=== PATIENT | female | born 1970 | race Caucasian/White ===

== ENCOUNTER 2021-08-13 13:16 | Inpatient (IN) | payer BC ==
[2021-08-13] MEDS ORDERED: Ondansetron 4 MG/2 ML SDV IVPUSH ONE ×2 (14:17→17:08)
[2021-08-13] MEDS ORDERED: Sodium Chloride 0.9% 1,000 ML IV SCH ×2 (14:30→16:00)
[2021-08-13] MEDS ORDERED: Morphine 2 MG/ML SYRINGE IVPUSH ONE (14:37)
[2021-08-13 14:38] LABS: ESTIMATED GFR 90 mL/min (>60)
[2021-08-13] MEDS ORDERED: HYDROmorphone 1 MG/ML Syringe IVPUSH ONE (15:02)
[2021-08-13 15:09] LABS: CORONAVIRUS COVID-19 NAA NEGATIVE (NEGATIVE)
[2021-08-13] MEDS ORDERED: Sodium Chloride 0.9% 10 ML Syringe FLUSH ONE (15:11)
[2021-08-13] MEDS ORDERED: Iopamidol 612 MG/ML 100 ML Bottle IV SCH (15:15)
[2021-08-13] MEDS ORDERED: Sodium Chloride 0.9% 50 ML IV SCH (15:15)
[2021-08-13] MEDS ORDERED: Meropenem 1 GM in Sodium Chloride 0.9% 100 ML IV SCH ×2 (16:45→17:47)
[2021-08-13] MEDS ORDERED: oxyCODONE 5 MG Tab PO PRN (17:47)
[2021-08-13] MEDS ORDERED: Sodium Chloride 0.9% 10 ML Syringe FLUSH PRN (17:47)
[2021-08-13] MEDS ORDERED: Acetaminophen 325 MG Tab PO PRN (17:47)
[2021-08-13] MEDS ORDERED: HYDROmorphone 0.5 MG/0.5 ML Syringe IVPUSH PRN (17:47)
[2021-08-13] MEDS ORDERED: Ondansetron 4 MG/2 ML SDV IV PRN (17:47)
[2021-08-13] MEDS: Enoxaparin 40 MG/0.4 ML Syringe SUBCUT SCH (18:14)
[2021-08-13] MEDS: Meropenem 500 MG in Sodium Chloride 0.9% 50 ML IV SCH (22:34)
[2021-08-14] MEDS: Sodium Chloride 0.9% 1,000 ML IV SCH ×2 (00:45→09:14)
[2021-08-14] MEDS: Meropenem 500 MG in Sodium Chloride 0.9% 50 ML IV SCH ×4 (05:15→22:42)
[2021-08-14] MEDS ORDERED: Levothyroxine 88 MCG Tab PO SCH (09:00)
[2021-08-14] MEDS: atorvaSTATin 20 MG Tab PO SCH (09:50)
[2021-08-14] MEDS: Enoxaparin 40 MG/0.4 ML Syringe SUBCUT SCH (09:50)
[2021-08-15] MEDS: Meropenem 500 MG in Sodium Chloride 0.9% 50 ML IV SCH ×2 (04:53→10:22)
[2021-08-15] MEDS ORDERED: Levothyroxine 88 MCG Tab PO SCH (07:30)
[2021-08-15] MEDS: atorvaSTATin 20 MG Tab PO SCH (10:22)
[2021-08-15] MEDS: Enoxaparin 40 MG/0.4 ML Syringe SUBCUT SCH (11:56)
== END 2021-08-15 11:57 | disposition home or self-care (01) | DRG 244 ==
LOC: JP.ED 13:16 → JP.MS 17:08
PROVIDERS: ADMIT Hospitalist; ATTEND Internal Medicine
DX: K57.32 Diverticulitis of large intestine without perforation or abscess without bleeding (principal); E78.00 Pure hypercholesterolemia, unspecified; E03.9 Hypothyroidism, unspecified; Z20.822 Contact with and (suspected) exposure to COVID-19; Z86.19 Personal history of other infectious and parasitic diseases; Z90.49 Acquired absence of other specified parts of digestive tract; Z79.890 Hormone replacement therapy; Z79.899 Other long term (current) drug therapy; Z88.1 Allergy status to other antibiotic agents; Z88.0 Allergy status to penicillin
CPT/HCPCS: 0241U; 36415; 74177; 80048; 80053; 81001; 82150; 83690; 83735; 85025; 87040; 96361; 96365; 96375; 96376; 99221; 99231; 99238; 99284; 99284-25; A9270-GY; J1170; J1650; J2185; J2270; J2405; J3490; J7030; Q9967

== ENCOUNTER 2022-08-17 09:43 | Emergency (ER) | payer BC ==
[2022-08-17] MEDS ORDERED: Sodium Chloride 0.9% 10 ML Syringe FLUSH PRN ×2 (10:14→10:26)
[2022-08-17] MEDS ORDERED: Sodium Chloride 0.9% 1,000 ML IV STA (10:14)
[2022-08-17] MEDS ORDERED: fentaNYL 100 MCG/2 ML SDV IVPUSH ONE (10:15)
[2022-08-17 10:24] LABS: BASOPHILS PERCENT AUTO 0.1 % (0.1-1.3); EOSINOPHILS ABSOLUTE AUTO 0.21 K/uL (0.00-0.40); EOSINOPHILS PERCENT AUTO 3.1 % (0.0-5.4); HEMATOCRIT 43.4 % (34.3-46.0); HEMOGLOBIN 14.3 g/dL (11.2-15.5); IMMATURE GRAN PERCENT AUTO 0.1 % (0.0-0.7); LYMPHOCYTES ABSOLUTE AUTO 1.53 K/uL (0.8-3.3); LYMPHOCYTES PERCENT AUTO 22.6 % (11.4-47.7); MEAN CORPUSCULAR HEMOGLOBIN 29.4 pg (31.6-35.5); MEAN CORPUSCULAR HGB CONC 32.9 g/dL (31.6-35.5); MEAN CORPUSCULAR VOLUME 89.1 fL (81.4-99.0); MONOCYTES ABSOLUTE AUTO 0.51 K/uL (0.20-0.90); MONOCYTES PERCENT AUTO 7.5 % (3.3-12.6); NEUTROPHILS PERCENT AUTO 66.6 % (40.0-78.1); PLATELET COUNT,PLT 298 K/uL (130-375); RED BLOOD CELL COUNT 4.87 M/uL (3.77-5.24); WHITE BLOOD CELL COUNT,WBC 6.8 K/uL (3.2-11.0)
[2022-08-17] MEDS ORDERED: Iopamidol 612 MG/ML 100 ML Bottle IV PRN (10:26)
[2022-08-17] MEDS ORDERED: Sodium Chloride 0.9% 50 ML IV SCH (10:30)
[2022-08-17 10:39] LABS: BASOPHILS ABSOLUTE AUTO 0.01 K/uL (0.00-0.10); IMMATURE GRAN ABSOLUTE AUTO 0.01 K/uL (0.00-0.23)
[2022-08-17 10:46] LABS: ALANINE AMINOTRANSFERASE,ALT 42 U/L (12-78); ALKALINE PHOSPHATASE 153 U/L (46-116); ASPARTATE AMNIOTRANSFERASE,AST 31 U/L (15-37); BILIRUBIN TOTAL 0.6 mg/dL (0.2-1.0); BLOOD UREA NITROGEN,BUN 10 mg/dL (7-18); CALCIUM 9.8 mg/dL (8.5-10.1); CARBON DIOXIDE,CO2 26 mmol/L (21-32); CHLORIDE,CL 102 mmol/L (100-108); CREATININE 1.1 mg/dL (0.6-1.0); EST CRCL DRUG DOSING (CG) 46.17 mL/min; ESTIMATED GFR 61 mL/min (>60); GLUCOSE RANDOM 90 mg/dL (74-106); PROTEIN TOTAL,TP 8.2 g/dL (6.4-8.2); SODIUM,NA 138 mmol/L (140-148)
[2022-08-17 10:46] LABS: APPEARANCE,URINE CLEAR (CLEAR); BILIRUBIN,URINE NEGATIVE (NEGATIVE); COLOR,URINE YELLOW (YELLOW); GLUCOSE,URINE NEGATIVE (NEGATIVE); KETONES,URINE NEGATIVE (NEGATIVE); LEUKOCYTE ESTERASE,URINE NEGATIVE (NEGATIVE); NITRITE,URINE NEGATIVE (NEGATIVE); OCCULT BLOOD,URINE NEGATIVE (NEGATIVE); PH,URINE 5.5 (5.0-8.0); PROTEIN,URINE NEGATIVE (NEGATIVE); UROBILINOGEN,URINE 0.2 EU/dL (0.2-1.0)
[2022-08-17 10:51] LABS: AMORPHOUS SEDIMENT,URINE NOT SEEN; BACTERIA,URINE RARE; EPITHELIAL CELLS,URINE RARE; MUCUS,URINE NOT SEEN; RBC,URINE NOT SEEN (0-5); WBC,URINE NOT SEEN (0-5)
== END 2022-08-17 14:08 | disposition home or self-care (01) ==
LOC: JP.ED 09:43
DX: N26.1 Atrophy of kidney (terminal) (principal); E78.00 Pure hypercholesterolemia, unspecified; E03.9 Hypothyroidism, unspecified; Z86.16 Personal history of COVID-19; Z88.1 Allergy status to other antibiotic agents; Z88.0 Allergy status to penicillin; Z79.899 Other long term (current) drug therapy; Z98.890 Other specified postprocedural states
CPT/HCPCS: 36415; 74177; 80053; 81001; 83605; 83690; 85025; 96374; 99284; J3010; J3490; J7030; Q9967

== ENCOUNTER 2022-09-04 03:59 | Inpatient (IN) | payer BC ==
[2022-09-04] MEDS ORDERED: Scopolamine 1.5 MG Transdermal Patch TOP ONE (06:27)
[2022-09-04] MEDS ORDERED: Dextrose 5%-Lactated Ringers 1,000 ML IV SCH (06:30)
[2022-09-04] MEDS ORDERED: Bupivacaine 0.5% 50 ML MDV ONE (06:33)
[2022-09-04] MEDS ORDERED: Lidocaine 1% with EPINEPHrine 1:100,000 50 ML MDV ONE (06:33)
[2022-09-04] MEDS ORDERED: Meropenem 500 MG SDV ONE (06:34)
[2022-09-04 06:46] LABS: HEMATOCRIT 39.9 % (34.3-46.0); HEMOGLOBIN 13.5 g/dL (11.2-15.5); MEAN CORPUSCULAR HEMOGLOBIN 30.1 pg (31.6-35.5); MEAN CORPUSCULAR HGB CONC 33.8 g/dL (31.6-35.5); MEAN CORPUSCULAR VOLUME 88.9 fL (81.4-99.0); RED BLOOD CELL COUNT 4.49 M/uL (3.77-5.24); WHITE BLOOD CELL COUNT,WBC 7.6 K/uL (3.2-11.0)
[2022-09-04] MEDS ORDERED: cefOXitin 2 GM in Sodium Chloride 0.9% 100 ML IV ONE (07:00)
[2022-09-04 07:06] LABS: ALANINE AMINOTRANSFERASE,ALT 35 U/L (12-78); ALBUMIN 3.7 g/dL (3.4-5.0); ALKALINE PHOSPHATASE 134 U/L (46-116); ANION GAP 10.5 mmol/L (5.0-14.0); ASPARTATE AMNIOTRANSFERASE,AST 20 U/L (15-37); BILIRUBIN TOTAL 0.2 mg/dL (0.2-1.0); BLOOD UREA NITROGEN,BUN 15 mg/dL (7-18); CALCIUM 9.1 mg/dL (8.5-10.1); CARBON DIOXIDE,CO2 24 mmol/L (21-32); CHLORIDE,CL 106 mmol/L (100-108); EST CRCL DRUG DOSING (CG) 53.23 mL/min; ESTIMATED GFR 69 mL/min (>60); GLUCOSE RANDOM 107 mg/dL (74-106); MAGNESIUM 1.7 mg/dL (1.8-2.4); PHOSPHORUS 3.7 mg/dL (2.5-4.9); POTASSIUM,K 3.8 mmol/L (3.6-5.2); PROTEIN TOTAL,TP 7.3 g/dL (6.4-8.2); SODIUM,NA 140 mmol/L (140-148)
[2022-09-04] MEDS ORDERED: fentaNYL 250 MCG/5 ML SDV ONE ×2 (07:10→07:59)
[2022-09-04] MEDS ORDERED: Ondansetron 4 MG/2 ML SDV ONE (07:11)
[2022-09-04] MEDS ORDERED: Propofol 200 MG/20 ML SDV ONE (07:11)
[2022-09-04] MEDS ORDERED: Rocuronium 50 MG/5 ML Vial ONE ×2 (07:11→09:45)
[2022-09-04] MEDS ORDERED: Neostigmine Methylsulfate 1 MG/ML 5 ML Syringe ONE (07:11)
[2022-09-04] MEDS ORDERED: Glycopyrrolate 0.2 MG/ML 5 ML MDV ONE (07:11)
[2022-09-04] MEDS ORDERED: Dexamethasone 4 MG/ML SDV ONE (07:11)
[2022-09-04] MEDS ORDERED: Succinylcholine 200 MG/10 ML MDV ONE (07:11)
[2022-09-04] MEDS ORDERED: cefOXitin 2 GM in Sodium Chloride 0.9% 50 ML IV ONE (07:15)
[2022-09-04] MEDS ORDERED: diphenhydrAMINE 25 MG Cap PO PRN (07:21)
[2022-09-04] MEDS ORDERED: Ondansetron 4 MG/2 ML SDV IVPUSH PRN (07:21)
[2022-09-04] MEDS ORDERED: Naloxone 0.4 MG/ML SDV IVPUSH PRN (07:21)
[2022-09-04] MEDS ORDERED: diphenhydrAMINE 50 MG/ML SDV IVPUSH PRN (07:21)
[2022-09-04] MEDS ORDERED: ePHEDrine 50 MG/ML SDV ONE (07:53)
[2022-09-04] MEDS ORDERED: Ketamine 15 MG in Sodium Chloride 0.9% 19.85 ML IV SCH (08:00)
[2022-09-04] MEDS ORDERED: Ketamine 500 MG/5 ML MDV IV SCH (08:00)
[2022-09-04] MEDS ORDERED: Linezolid 600 MG/300 ML Premix Bag IRR ONE (08:09)
[2022-09-04] MEDS ORDERED: Labetalol 20 MG/4 ML Syringe ONE (08:59)
[2022-09-04] MEDS ORDERED: CHECK SCOPALAMINE PATCH TOP SCH (09:00)
[2022-09-04] MEDS ORDERED: Lactated Ringers 1,000 ML ONE (09:26)
[2022-09-04] MEDS: HYDROmorphone/Normal Saline 6 MG/30 ML PCA Vial IV PRN ×2 (10:00→17:25)
[2022-09-04] MEDS ORDERED: fentaNYL 100 MCG/2 ML SDV ONE (10:22)
[2022-09-04] MEDS ORDERED: Cyclobenzaprine 10 MG Tab PO PRN (13:18)
[2022-09-04] MEDS ORDERED: hydrOXYzine HCL 100 MG/2 ML SDV IM PRN (13:30)
[2022-09-04] MEDS ORDERED: Acetaminophen 500 MG Tab PO PRN (13:30)
[2022-09-04] MEDS ORDERED: Labetalol 20 MG/4 ML Syringe IVPUSH PRN (13:30)
[2022-09-04] MEDS: cefOXitin 2 GM in Sodium Chloride 0.9% 50 ML IV SCH ×2 (15:00→19:41)
[2022-09-04] MEDS: Pantoprazole 40 MG Vial IVPUSH SCH (15:01)
[2022-09-04] MEDS: MVI, Adult with Vitamin K 10 ML, Thiamine 200 MG, Zinc/Copper/Manganese/Selenium 1 ML i... IV SCH ×4 (15:43)
[2022-09-04] MEDS: Ondansetron 4 MG/2 ML SDV IVPUSH PRN ×2 (19:00→23:29)
[2022-09-04] MEDS: Acetaminophen 500 MG Tab PO SCH (21:39)
[2022-09-04] MEDS: Dextrose 5%-Lactated Ringers 1,000 ML IV SCH (22:18)
[2022-09-05] MEDS: cefOXitin 2 GM in Sodium Chloride 0.9% 50 ML IV SCH ×4 (01:40→19:42)
[2022-09-05 04:32] LABS: BASOPHILS PERCENT AUTO 0.1 % (0.1-1.3); HEMATOCRIT 37.3 % (34.3-46.0); IMMATURE GRAN ABSOLUTE AUTO 0.09 K/uL (0.00-0.23); IMMATURE GRAN PERCENT AUTO 0.4 % (0.0-0.7); LYMPHOCYTES ABSOLUTE AUTO 0.93 K/uL (0.8-3.3); MEAN CORPUSCULAR HEMOGLOBIN 29.6 pg (31.6-35.5); MEAN CORPUSCULAR HGB CONC 32.2 g/dL (31.6-35.5); MEAN CORPUSCULAR VOLUME 92.1 fL (81.4-99.0); MONOCYTES ABSOLUTE AUTO 2.04 K/uL (0.20-0.90); MONOCYTES PERCENT AUTO 8.8 % (3.3-12.6); NEUTROPHILS ABSOLUTE AUTO 20.01 K/uL (1.0-7.6); NEUTROPHILS PERCENT AUTO 86.7 % (40.0-78.1); PLATELET COUNT,PLT 303 K/uL (130-375); RED BLOOD CELL COUNT 4.05 M/uL (3.77-5.24); WHITE BLOOD CELL COUNT,WBC 23.1 K/uL (3.2-11.0)
[2022-09-05] MEDS: Dextrose 5%-Lactated Ringers 1,000 ML IV SCH (04:34)
[2022-09-05] MEDS: HYDROmorphone/Normal Saline 6 MG/30 ML PCA Vial IV PRN (04:37)
[2022-09-05 04:56] LABS: A/G RATIO 0.9 (1.2-2.2); ALANINE AMINOTRANSFERASE,ALT 40 U/L (12-78); ALBUMIN 2.9 g/dL (3.4-5.0); ALKALINE PHOSPHATASE 99 U/L (46-116); ASPARTATE AMNIOTRANSFERASE,AST 24 U/L (15-37); BILIRUBIN TOTAL 0.2 mg/dL (0.2-1.0); BLOOD UREA NITROGEN,BUN 14 mg/dL (7-18); CARBON DIOXIDE,CO2 26 mmol/L (21-32); CHLORIDE,CL 107 mmol/L (100-108); CREATININE 1.2 mg/dL (0.6-1.0); EST CRCL DRUG DOSING (CG) 44.36 mL/min; ESTIMATED GFR 55 mL/min (>60); GLUCOSE RANDOM 210 mg/dL (74-106); MAGNESIUM 1.6 mg/dL (1.8-2.4); PHOSPHORUS 3.3 mg/dL (2.5-4.9); POTASSIUM,K 4.7 mmol/L (3.6-5.2); PRO B-TYPE NATRIUR PEPT,BNPPRO 44 pg/mL (5-125); PROTEIN TOTAL,TP 6.3 g/dL (6.4-8.2); SODIUM,NA 139 mmol/L (140-148)
[2022-09-05 05:04] LABS: ANION GAP 10.7 mmol/L (5.0-14.0); BASOPHILS ABSOLUTE AUTO 0.02 K/uL (0.00-0.10)
[2022-09-05] MEDS: Acetaminophen 500 MG Tab PO SCH (06:05)
[2022-09-05] MEDS: diphenhydrAMINE 50 MG/ML SDV IVPUSH PRN ×2 (07:59→16:31)
[2022-09-05] MEDS: TRULANCE 3 MG PO SCH (09:07)
[2022-09-05] MEDS: Levothyroxine 88 MCG Tab PO SCH (09:07)
[2022-09-05] MEDS: Acetaminophen 1,000 MG in Premix Bag 1 BAG IV SCH ×3 (09:07→21:12)
[2022-09-05] MEDS: SCOPOLAMINE PATCH CHECK TOP SCH (09:12)
[2022-09-05] MEDS: Magnesium Sulfate/Water 2 GM in Premix Bag 1 BAG IV SCH ×3 (09:31→22:21)
[2022-09-05] MEDS: Pantoprazole 40 MG Vial IVPUSH SCH (13:54)
[2022-09-05] MEDS: MVI, Adult with Vitamin K 10 ML, Thiamine 200 MG, Zinc/Copper/Manganese/Selenium 1 ML i... IV SCH ×4 (16:23)
[2022-09-05] MEDS: Ondansetron 4 MG/2 ML SDV IVPUSH PRN (19:30)
[2022-09-06] MEDS: Metoclopramide 10 MG/2 ML SDV IVPUSH PRN ×2 (00:36→07:15)
[2022-09-06] MEDS: Dextrose 5%-Lactated Ringers 1,000 ML IV SCH ×3 (01:05→18:12)
[2022-09-06] MEDS: cefOXitin 2 GM in Sodium Chloride 0.9% 50 ML IV SCH ×2 (01:06→07:21)
[2022-09-06] MEDS: Acetaminophen 1,000 MG in Premix Bag 1 BAG IV SCH (03:21)
[2022-09-06] MEDS: Ondansetron 4 MG/2 ML SDV IVPUSH PRN ×2 (03:28→09:50)
[2022-09-06] MEDS: Magnesium Sulfate/Water 2 GM in Premix Bag 1 BAG IV SCH ×4 (03:54→21:11)
[2022-09-06] MEDS: HYDROmorphone/Normal Saline 6 MG/30 ML PCA Vial IV PRN (04:49)
[2022-09-06 04:56] LABS: HEMATOCRIT 31.3 % (34.3-46.0); HEMOGLOBIN 10.1 g/dL (11.2-15.5); MEAN CORPUSCULAR HEMOGLOBIN 29.4 pg (31.6-35.5); MEAN CORPUSCULAR HGB CONC 32.3 g/dL (31.6-35.5); RED BLOOD CELL COUNT 3.44 M/uL (3.77-5.24); WHITE BLOOD CELL COUNT,WBC 18.7 K/uL (3.2-11.0)
[2022-09-06 05:25] LABS: A/G RATIO 0.8 (1.2-2.2); ALANINE AMINOTRANSFERASE,ALT 28 U/L (12-78); ALBUMIN 2.6 g/dL (3.4-5.0); ALKALINE PHOSPHATASE 88 U/L (46-116); ASPARTATE AMNIOTRANSFERASE,AST 17 U/L (15-37); BILIRUBIN TOTAL 0.2 mg/dL (0.2-1.0); BLOOD UREA NITROGEN,BUN 8 mg/dL (7-18); CALCIUM 8.3 mg/dL (8.5-10.1); CARBON DIOXIDE,CO2 27 mmol/L (21-32); CHLORIDE,CL 104 mmol/L (100-108); CREATININE 1.1 mg/dL (0.6-1.0); EST CRCL DRUG DOSING (CG) 48.39 mL/min; ESTIMATED GFR 61 mL/min (>60); GLUCOSE RANDOM 145 mg/dL (74-106); PHOSPHORUS 2.2 mg/dL (2.5-4.9); POTASSIUM,K 3.8 mmol/L (3.6-5.2); PROTEIN TOTAL,TP 5.7 g/dL (6.4-8.2); SODIUM,NA 138 mmol/L (140-148)
[2022-09-06 05:26] LABS: ANION GAP 10.8 mmol/L (5.0-14.0)
[2022-09-06] MEDS ORDERED: Bupivacaine 0.5% 50 ML MDV ONE (06:35)
[2022-09-06] MEDS ORDERED: Lidocaine 1% with EPINEPHrine 1:100,000 50 ML MDV ONE (06:35)
[2022-09-06] MEDS ORDERED: Meropenem 500 MG SDV ONE (06:35)
[2022-09-06] MEDS: Levothyroxine 88 MCG Tab PO SCH (07:25)
[2022-09-06] MEDS ORDERED: Potassium Phosphates 3 mMole/ML 15 ML SDV IV ONE (08:10)
[2022-09-06] MEDS ORDERED: Cyanocobalamin (Vitamin B12) 1,000 MCG/ML SDV IM ONE (09:00)
[2022-09-06] MEDS: TRULANCE 3 MG PO SCH (09:40)
[2022-09-06] MEDS: SCOPOLAMINE PATCH CHECK TOP SCH (09:40)
[2022-09-06] MEDS: Acetaminophen 500 MG Tab PO SCH ×2 (09:41→17:23)
[2022-09-06] MEDS: Potassium Phos in 0.9 % NaCl 15 MMOL in Premix Bag 1 BAG IV SCH ×6 (10:54→17:23)
[2022-09-06] MEDS: Pantoprazole 40 MG Vial IVPUSH SCH (14:10)
[2022-09-07] MEDS: Acetaminophen 500 MG Tab PO SCH ×3 (00:19→16:45)
[2022-09-07 04:21] LABS: HEMATOCRIT 27.2 % (34.3-46.0); HEMOGLOBIN 8.9 g/dL (11.2-15.5); MEAN CORPUSCULAR HEMOGLOBIN 29.8 pg (31.6-35.5); MEAN CORPUSCULAR HGB CONC 32.7 g/dL (31.6-35.5); RED BLOOD CELL COUNT 2.99 M/uL (3.77-5.24); WHITE BLOOD CELL COUNT,WBC 13.1 K/uL (3.2-11.0)
[2022-09-07 04:44] LABS: A/G RATIO 0.7 (1.2-2.2); ALANINE AMINOTRANSFERASE,ALT 21 U/L (12-78); ALBUMIN 2.2 g/dL (3.4-5.0); ALKALINE PHOSPHATASE 81 U/L (46-116); ASPARTATE AMNIOTRANSFERASE,AST 19 U/L (15-37); BILIRUBIN TOTAL 0.3 mg/dL (0.2-1.0); BLOOD UREA NITROGEN,BUN 6 mg/dL (7-18); CALCIUM 8.2 mg/dL (8.5-10.1); CARBON DIOXIDE,CO2 29 mmol/L (21-32); CHLORIDE,CL 104 mmol/L (100-108); CREATININE 0.8 mg/dL (0.6-1.0); EST CRCL DRUG DOSING (CG) 66.54 mL/min; ESTIMATED GFR 90 mL/min (>60); GLUCOSE RANDOM 124 mg/dL (74-106); PHOSPHORUS 3.1 mg/dL (2.5-4.9); POTASSIUM,K 3.8 mmol/L (3.6-5.2); PROTEIN TOTAL,TP 5.3 g/dL (6.4-8.2); SODIUM,NA 138 mmol/L (140-148)
[2022-09-07] MEDS: Magnesium Sulfate/Water 2 GM in Premix Bag 1 BAG IV SCH ×4 (04:46→23:40)
[2022-09-07] MEDS: Dextrose 5%-Lactated Ringers 1,000 ML IV SCH ×3 (04:46→19:46)
[2022-09-07 04:48] LABS: ANION GAP 8.8 mmol/L (5.0-14.0)
[2022-09-07] MEDS ORDERED: fentaNYL 100 MCG/2 ML SDV ONE (06:40)
[2022-09-07] MEDS ORDERED: Propofol 200 MG/20 ML SDV ONE ×2 (06:40→07:36)
[2022-09-07] MEDS ORDERED: Bupivacaine 0.5% 50 ML MDV ONE (06:57)
[2022-09-07] MEDS ORDERED: Meropenem 500 MG SDV ONE (06:57)
[2022-09-07] MEDS ORDERED: Lidocaine 1% with EPINEPHrine 1:100,000 50 ML MDV ONE (06:57)
[2022-09-07] MEDS: TRULANCE 3 MG PO SCH (09:00)
[2022-09-07] MEDS: Levothyroxine 88 MCG Tab PO SCH (09:01)
[2022-09-07] MEDS: Bisacodyl 5 MG Tab PO SCH ×2 (10:35→21:22)
[2022-09-07] MEDS: Docusate Sodium 100 MG Cap PO SCH ×2 (10:35→21:22)
[2022-09-07] MEDS: Pantoprazole 40 MG Vial IVPUSH SCH (15:38)
[2022-09-08] MEDS: Acetaminophen 500 MG Tab PO SCH ×2 (00:30→09:06)
[2022-09-08] MEDS: Magnesium Sulfate/Water 2 GM in Premix Bag 1 BAG IV SCH (03:54)
[2022-09-08] MEDS: Dextrose 5%-Lactated Ringers 1,000 ML IV SCH (06:05)
[2022-09-08] MEDS ORDERED: HYDROmorphone 2 MG Tab PO PRN (08:36)
[2022-09-08] MEDS ORDERED: Dextrose 5%-Lactated Ringers 1,000 ML IV SCH (08:45)
[2022-09-08] MEDS: Docusate Sodium 100 MG Cap PO SCH (09:06)
[2022-09-08] MEDS: TRULANCE 3 MG PO SCH (09:06)
[2022-09-08] MEDS: Bisacodyl 5 MG Tab PO SCH (09:06)
[2022-09-08] MEDS: Levothyroxine 88 MCG Tab PO SCH (09:07)
[2022-09-08] MEDS ORDERED: Pantoprazole 40 MG Tab.CR PO SCH (11:30)
== END 2022-09-08 15:54 | disposition home or self-care (01) | DRG 443 ==
LOC: JP.SDSSCHI 06:06 → JP.ICU 11:30 → JP.MS 09-05 00:38
PROVIDERS: ADMIT Surgery; ATTEND Surgery
PROC: 0DH67UZ Insertion of Feeding Device into Stomach, Via Natural or Artificial Opening (ICD-10-PCS; principal; 2022-09-04)
PROC: 0DB80ZZ Excision of Small Intestine, Open Approach (ICD-10-PCS; 2022-09-04)
PROC: 0TT10ZZ Resection of Left Kidney, Open Approach (ICD-10-PCS; 2022-09-04)
PROC: 0GT20ZZ Resection of Left Adrenal Gland, Open Approach (ICD-10-PCS; 2022-09-04)
PROC: 3E0M05Z Introduction of Adhesion Barrier into Peritoneal Cavity, Open Approach (ICD-10-PCS; 2022-09-04)
PROC: 0WQFXZZ Repair Abdominal Wall, External Approach (ICD-10-PCS; 2022-09-07)
DX: N26.1 Atrophy of kidney (terminal) (principal); N13.30 Unspecified hydronephrosis; K91.89 Other postprocedural complications and disorders of digestive system; K56.7 Ileus, unspecified; K56.50 Intestinal adhesions [bands], unspecified as to partial versus complete obstruction; E78.00 Pure hypercholesterolemia, unspecified; F41.9 Anxiety disorder, unspecified; F32.A Depression, unspecified; E03.9 Hypothyroidism, unspecified; E83.42 Hypomagnesemia; E83.39 Other disorders of phosphorus metabolism; Z88.0 Allergy status to penicillin; Z88.1 Allergy status to other antibiotic agents; Z79.899 Other long term (current) drug therapy; Z87.81 Personal history of (healed) traumatic fracture; Z86.16 Personal history of COVID-19; Z90.49 Acquired absence of other specified parts of digestive tract; Z90.721 Acquired absence of ovaries, unilateral; Z90.79 Acquired absence of other genital organ(s); Z98.890 Other specified postprocedural states
CPT/HCPCS: 36415; 74018; 74018-26; 80053; 82947; 83735; 83880; 84100; 85025; 85027; 86850; 86900; 86901; 88307; A9270-GY; C9113; J0131; J0171; J0330; J0456; J0694; J1100; J1170; J1200; J2020; J2185; J2405; J2704; J2710; J2765; J2795; J3010; J3411; J3420; J3475; J3490; J7120; J7121